=== PATIENT | male | born 1990 | race Two or more races ===

== ENCOUNTER 2019-12-25 13:04 | Emergency (ER) | payer SELFPAY ==
[~2019-12-25] VITALS: Ht 190.5 cm; Wt 70.0 kg
--- NOTE | 2019-12-25 13:41 | PHYS DOC ---
General Adult EDM: Chief Complaint: MULTIPLE COMPLAINTS HPI: HPI: Patient is a 29 year old male who presents with multiple complaints.. He states he is had a headache for the last 2 to 3 months that goes from the back of his head and radiates up around to the front of his face. He states he also has sinus pressure. He states that her the last few months he cannot see at distances of 15 to 20 feet instead is very blurry. States he is had some nausea and vomiting intermittently. He states he is been seen for it a couple times when he lived in [place] but they cannot find any thing wrong with him. He has a history of asthma. Rates pain 8 out of 10. Review of Systems: Review of Systems: Eyes: far sight blurry change in visual acuity. [] GI: Denies abdominal pain, intermittent nausea, vomiting, denies bloody stools or diarrhea. [] Neurologic: headache, denies focal weakness or sensory changes. [] Heart Score: Risk Factors: Risk Factors: DM, Current or recent (<one month) smoker, HTN, HLP, family history of CAD, obesity. Risk Scores: Score 0 - 3: 2.5% MACE over next 6 weeks - Discharge Home Score 4 - 6: 20.3% MACE over next 6 weeks - Admit for Clinical Observation Score 7 - 10: 72.7% MACE over next 6 weeks - Early Invasive Strategies Physical Exam: PE: Constitutional: Well developed, well nourished, no acute distress, non-toxic appearance. [] HENT: Normocephalic, atraumatic, bilateral external ears normal, oropharynx moist, no oral exudates, nose normal. [] Eyes: PERRLA, EOMI, conjunctiva normal, no discharge. [] Neck: Normal range of motion, no tenderness, supple, no stridor. [] Cardiovascular:Heart rate regular rhythm, no murmur [] Lungs & Thorax: Bilateral breath sounds clear to auscultation [] Abdomen: Bowel sounds normal, soft, no tenderness, no masses, no pulsatile masses. [] Skin: Warm, dry, no erythema, no rash. [] Back: No tenderness, no CVA tenderness. [] Extremities: No tenderness, no cyanosis, no clubbing, ROM intact, no edema. [] Neurologic: Alert and oriented X 3, normal motor function, normal sensory function, no focal deficits noted. [] Psychologic: Affect normal, judgement normal, mood normal. [] EKG: EKG: [] Radiology/Procedures: Radiology/Procedures: [] Impression: [facility] [address] [place] [address] IMAGING REPORT Signed PATIENT: KAREN CACERESOUNT: [id number] : 1990 LOCATION: ER AGE: 29 SEX: M EXAM STATUS: REG ER ORD. PHYSICIAN: SARAI PÉREZ APRN REASON: PAIN, BLURRED VISION PROCEDURE: CT HEAD AND MAXILLOFACIAL WO EXAM: Head and maxillofacial bone CT without contrast. HISTORY: Pain and blurred vision. TECHNIQUE: Computed tomographic images of the head and maxillofacial bones were obtained without contrast. *One or more of the following individualized dose reduction techniques were utilized for this examination: 1. Automated exposure control. 2. Adjustment of the mA and/or kV according to patient size. 3. Use of iterative reconstruction technique. COMPARISON: None. FINDINGS: There is no acute or subacute extra-axial or intraparenchymal hemorrhage. There is no mass effect or midline shift. There is no hydrocephalus. The hale-white matter differentiation pattern is intact no calvarial lesion is seen. The orbits are unremarkable. There is fluid within the inferior medial left mastoid air cells. The temporomandibular joints are intact. There is mild paranasal sinus mucosal thickening. There are small bilateral maxillary sinus mucous retention cysts. There is rightward nasal septal deviation. The ostiomeatal units are patent. There is mild endplate remodeling involving the visualized cervical spine. IMPRESSION: 1. No acute intracranial finding. Note is made that MRI is more sensitive for acute infarction. 2. No acute maxillofacial bone finding. There is mild paranasal sinus of thickening with maxillary sinus mucous retention cysts and nasal septal deviation. Electronically signed by: Cindi Flores MD (12/25/2019 2:23 PM) [facility] DICTATED and SIGNED BY: CINDI FLORES MD DATE: 12/25/19 1423 Course & Med Decision Making: Course & Med Decision Making Pertinent Labs and Imaging studies reviewed. (See chart for details) Afebrile. Alert and oriented. Vital signs within normal limits. Ambulatory with a steady gait. Speaks in full clear sentences. Lungs are clear to auscultation all lobes. Patient denies chest pain, shortness of air, cough, LOC, dizziness, numbness or tingling, focal weakness, diarrhea, fever. Patient most likely needs to go to a eye doctor and if his vision is corrected this may help stop his headaches. ALISON. NIH 0. [] Fabio Disclaimer: Fabio Disclaimer: This electronic medical record was generated, in whole or in part, using a voice recognition dictation system. NIHSS Stroke Scale NIH Stroke Scale: NIH Stroke Scale Response (Comments) Value Level of Consciousness: 0 Alert/Responsive 0 LOC Questions: 0 Answers both correctly 0 LOC Commands: 0 Performs both tasks 0 Best Gaze: 0 Normal 0 Visual: 0 No visual loss 0 Facial Palsy: 0 Normal, symmetrical 0 Motor - Left Arm 0 No drift 0 Motor - Right Arm 0 No drift 0 Motor - Left Leg 0 No drift 0 Motor: Right Leg 0 No drift 0 Limb Ataxia: 0 Absent 0 Sensory: 0 No loss 0 Best Language: 0 Normal 0 Dysathria: 0 Normal 0 Extinction and Inattention: 0 Normal 0 Total 0 Departure Departure Impression: Primary Impression: Headache Qualified Codes: R51 - Headache Additional Impression: Sinusitis Qualified Codes: J01.00 - Acute maxillary sinusitis, unspecified Disposition: HOME, SELF-CARE Condition: STABLE Referrals: NO PCP (PCP) Dyan PONCE MD, COLLEEN N MD Patient Instructions: Sinus Headache, [id number], Sinusitis Additional Instructions: Follow up with a ENT or a primary care physician. You also need glasses and need to see a eye doctor. Scripts Ibuprofen (IBUPROFEN) 600 Mg Tablet 600 MG PO PRN Q6HRS PRN for INFLAMMATION, #20 TAB Prov: SARAI PÉREZ APRN 12/25/19 Azithromycin (AZITHROMYCIN TABLET) 250 Mg Tablet 1 PKG PO UD for 5 Days, #6 TAB 0 Refills 2 the first day followed by 1 for days 2-5 Prov: SARAI PÉREZ APRN 12/25/19 Justicifation of Admission Dx: Justifications for Admission: Justification of Admission Dx: N/A SARAI PÉREZ APRN Dec 25, 2019 13:41
[2019-12-25] MEDS ORDERED: PROCHLORPERAZINE 10 MG/2 ML VIAL. IV ONE (13:45)
[2019-12-25] MEDS ORDERED: diphenhydrAMINE 50 MG/ML VIAL IVP ONE (13:45)
[2019-12-25] MEDS ORDERED: KETOROLAC 30 MG/ML VIAL. IVP ONE (13:45)
[2019-12-25 14:08] LABS: BASO # 0.1 x10^3/uL (0.0-0.2); BASO % 1 % (0-3); EOS # 0.1 x10^3/uL (0.0-0.7); EOS % 1 % (0-3); HEMOGLOBIN 15.3 g/dL (13.0-17.5); LYMPH # 1.5 x10^3/uL (1.0-4.8); LYMPH % 21 % (24-48); MEAN CORPUSCULAR HEMOGLOBIN 29 pg (25-35); MEAN CORPUSCULAR HGB CONC 34 g/dL (31-37); MEAN CORPUSCULAR VOLUME 86 fL (79-100); MONO # 0.4 x10^3/uL (0.0-1.1); MONO % 6 % (0-9); NEUT # 5.2 x10^3/uL (1.8-7.7); NEUT % 71 % (31-73); PLATELET COUNT 273 x10^3/uL (140-400); RED BLOOD COUNT 5.26 x10^6/uL (4.30-5.70); RED CELL DISTRIBUTION WIDTH 12.7 % (11.5-14.5); WHITE BLOOD COUNT 7.3 x10^3/uL (4.0-11.0)
[2019-12-25 14:16] VITALS: BP 132/78
[2019-12-25 14:17] LABS: CREATININE 1.1 mg/dL (0.7-1.3); GFR 78.1
[2019-12-25 14:23] LABS: ALBUMIN 4.3 g/dL (3.4-5.0); ALBUMIN/GLOBULIN RATIO 1.2 (1.0-1.7); TOTAL BILIRUBIN 1.3 mg/dL (0.2-1.0); TOTAL PROTEIN 7.8 g/dL (6.4-8.2)
--- NOTE | 2019-12-25 14:26 | RAD ---
EXAM: Head and maxillofacial bone CT without contrast. HISTORY: Pain and blurred vision. TECHNIQUE: Computed tomographic images of the head and maxillofacial bones were obtained without contrast. *One or more of the following individualized dose reduction techniques were utilized for this examination: 1. Automated exposure control. 2. Adjustment of the mA and/or kV according to patient size. 3. Use of iterative reconstruction technique. COMPARISON: None. FINDINGS: There is no acute or subacute extra-axial or intraparenchymal hemorrhage. There is no mass effect or midline shift. There is no hydrocephalus. The hale-white matter differentiation pattern is intact no calvarial lesion is seen. The orbits are unremarkable. There is fluid within the inferior medial left mastoid air cells. The temporomandibular joints are intact. There is mild paranasal sinus mucosal thickening. There are small bilateral maxillary sinus mucous retention cysts. There is rightward nasal septal deviation. The ostiomeatal units are patent. There is mild endplate remodeling involving the visualized cervical spine. IMPRESSION: 1. No acute intracranial finding. Note is made that MRI is more sensitive for acute infarction. 2. No acute maxillofacial bone finding. There is mild paranasal sinus of thickening with maxillary sinus mucous retention cysts and nasal septal deviation. Electronically signed by: Cindi Carmen MD (12/25/2019 2:23 PM) [facility]
[2019-12-25] MEDS ORDERED: AZIT250T6 PO (14:32)
[2019-12-25] MEDS ORDERED: IBUP-1007 PO (14:32)
== END 2019-12-25 14:44 | disposition home or self-care (01) ==
LOC: ER 13:04
DX: J01.00 Acute maxillary sinusitis, unspecified (principal); R51 Headache; R11.2 Nausea with vomiting, unspecified
CPT/HCPCS: 36415; 70450; 70486; 80053; 83690; 85025; 96374; 96375; 99285; J0780; J1200; J1885

== ENCOUNTER 2020-02-22 13:08 | Emergency (ER) | payer SELFPAY ==
[~2020-02-22] VITALS: Ht 190.5 cm; Wt 68.2 kg
[~2020-02-22 13:08] MED LIST: AZIT250T6 PO; IBUP-1007 PO
[2020-02-22] MEDS ORDERED: METOCLOPRAMIDE HCL 10 MG/2 ML VIAL. IV ONE (13:45)
[2020-02-22] MEDS ORDERED: diphenhydrAMINE 50 MG/ML VIAL IVP ONE (13:45)
[2020-02-22] MEDS ORDERED: KETOROLAC 30 MG/ML VIAL. IV ONE (13:45)
[2020-02-22] MEDS ORDERED: IV NORMAL SALINE 1000ML BAG 1,000 ML IV ONE (13:45)
--- NOTE | 2020-02-22 14:25 | PHYS DOC ---
Past Medical History Past Medical History: Asthma Past Surgical History: No Surgical History Smoking Status: Former Smoker Alcohol Use: Sober General Adult EDM: Chief Complaint: NAUSEA/VOMITING/DIARRHA HPI: HPI: Patient is a 29-year-old male who presents with a 3-month history of headache. He states it is behind his left eye on the left side of his body. He states it comes and goes and at times is serious. He has had a headache for the last several hours he describes both photophobia and phonophobia. He has had nausea and vomiting. He states that he is also considering suicide secondary to the relentless nature of the headaches. He states he doubts he would do it because he has children at home. He denies any fever or neck pain. He denies any lateralizing neurologic weakness. [] Review of Systems: Review of Systems: Constitutional: Denies fever or chills. [] Eyes: Denies change in visual acuity. [] HENT: Denies nasal congestion or sore throat. [] Respiratory: Denies cough or shortness of breath. [] Cardiovascular: Denies chest pain or edema. [] GI: Denies abdominal pain, nausea, vomiting, bloody stools or diarrhea. [] : Denies dysuria. [] Musculoskeletal: Denies back pain or joint pain. [] Integument: Denies rash. [] Neurologic: Per HPI. [] Endocrine: Denies polyuria or polydipsia. [] Lymphatic: Denies swollen glands. [] Psychiatric: Reports depression reports anxiety reports suicidal thoughts] Heart Score: Risk Factors: Risk Factors: DM, Current or recent (<one month) smoker, HTN, HLP, family history of CAD, obesity. Risk Scores: Score 0 - 3: 2.5% MACE over next 6 weeks - Discharge Home Score 4 - 6: 20.3% MACE over next 6 weeks - Admit for Clinical Observation Score 7 - 10: 72.7% MACE over next 6 weeks - Early Invasive Strategies Current Medications: Current Medications Medications (Trade) Dose Ordered Sig/Kassandra Start Time Stop Time Status Last Admin Dose Admin Diphenhydramine HCl (Benadryl) 25 mg 1X ONCE 02/22/20 13:45 02/22/20 13:46 DC Ketorolac Tromethamine (Toradol 30mg Vial) 30 mg 1X ONCE 02/22/20 13:45 02/22/20 13:46 DC Metoclopramide HCl (Reglan Vial) 10 mg 1X ONCE 02/22/20 13:45 02/22/20 13:46 DC Sodium Chloride 1,000 ml @ 1,000 mls/hr 1X ONCE 02/22/20 13:45 02/22/20 14:44 Allergies: Allergies: Allergies Coded Allergies Type Severity Reaction Last Updated Verified Penicillins Allergy Unknown 12/25/19 Yes Physical Exam: PE: Constitutional: Well developed, well nourished, no acute distress, non-toxic appearance. [] HENT: Normocephalic, atraumatic, bilateral external ears normal, oropharynx moist, no oral exudates, nose normal. [] Eyes: PERRLA, EOMI, conjunctiva normal, no discharge. [] Neck: Normal range of motion, no tenderness, supple, no stridor. [] Cardiovascular:Heart rate regular rhythm, no murmur [] Lungs & Thorax: Bilateral breath sounds clear to auscultation [] Abdomen: Bowel sounds normal, soft, no tenderness, no masses, no pulsatile masses. [] Skin: Warm, dry, no erythema, no rash. [] Back: No tenderness, no CVA tenderness. [] Extremities: No tenderness, no cyanosis, no clubbing, ROM intact, no edema. [] Neurologic: Alert and oriented X 3, normal motor function, normal sensory function, no focal deficits noted. [] Psychologic: Anxious. [] Current Patient Data: Vital Signs: Vital Signs Date Time Temp Pulse Resp B/P (MAP) Pulse Ox O2 Delivery O2 Flow Rate FiO2 02/22/20 13:29 99.2 83 16 147/81 (103) 99 Room Air 99.2 EKG: EKG: [] Radiology/Procedures: Radiology/Procedures: [] Course & Med Decision Making: Course & Med Decision Making Pertinent Labs and Imaging studies reviewed. (See chart for details) [ED course: Evaluation reveals a 29-year-old male with what sounds like chronic migraines. He has had also uncontrolled anxiety and depression. I had the psychiatric assessment team evaluate him today and they determined that he was not suicidal or homicidal. I will send him home with some medicine for his anxiety as well as headaches.] Fabio Disclaimer: Fabio Disclaimer: This electronic medical record was generated, in whole or in part, using a voice recognition dictation system. Departure Departure Impression: Primary Impression: Migraine headache Qualified Codes: G43.901 - Migraine, unspecified, not intractable, with status migrainosus Additional Impression: Panic disorder Disposition: 01 HOME, SELF-CARE Condition: IMPROVED Referrals: NO PCP (PCP) Patient Instructions: Anxiety and Panic Attacks, Migraine Headache Additional Instructions: Return to the emergency department with any new or concerning symptoms Scripts Paroxetine Hcl (PAXIL) 20 Mg Tablet 1 TAB PO DAILY for 30 Days, #30 TAB 0 Refills Prov: CAROL ROGERS DO 02/22/20 Metoclopramide Hcl (REGLAN) 10 Mg Tablet 1 TAB PO Q8HRS PRN for migraine, #30 TAB Take 25 mg of Benadryl with each dose Prov: CAROL ROGERS DO 02/22/20 Alprazolam (ALPRAZOLAM) 0.25 Mg Tablet 0.25 MG PO PRN Q6HRS PRN for ANXIETY / AGITATION, #20 TAB 0 Refills Prov: CAROL ROGERS DO 02/22/20 Justicifation of Admission Dx: Justifications for Admission: Justification of Admission Dx: CAROL Painting DO Feb 22, 2020 14:25
--- NOTE | 2020-02-22 14:32 | RAD ---
EXAM: CT HEAD WITHOUT CONTRAST. HISTORY: Headache. TECHNIQUE: Computed tomography of the head was performed without intravenous contrast. One or more of the following individualized dose reduction techniques were utilized for this examination: 1. Automated exposure control. 2. Adjustment of the mA and/or kV according to patient size. 3. Use of iterative reconstruction technique. COMPARISON: 12/25/2019. FINDINGS: There is no intracranial hemorrhage. Brito-white differentiation is preserved. The ventricles are normal in size and position. There is moderate mucosal thickening throughout the ethmoid air cells. There is a small amount of fluid in the left aspect of the frontal sinus. The orbits are unremarkable. The temporal bones are unremarkable. The calvarium reveals no suspicious lesions. IMPRESSION: 1. No acute intracranial findings. 2. Acute on chronic ethmoid and frontal sinus disease. Electronically signed by: Sidney Arana MD (02/22/2020 2:29 PM) [id number]
[2020-02-22 14:36] LABS: BASO % 1 % (0-3); EOS # 0.1 x10^3/uL (0.0-0.7); EOS % 2 % (0-3); HEMATOCRIT 46.2 % (39.0-53.0); HEMOGLOBIN 15.6 g/dL (13.0-17.5); LYMPH # 1.4 x10^3/uL (1.0-4.8); LYMPH % 23 % (24-48); MEAN CORPUSCULAR HEMOGLOBIN 29 pg (25-35); MEAN CORPUSCULAR HGB CONC 34 g/dL (31-37); MEAN CORPUSCULAR VOLUME 86 fL (79-100); MONO # 0.4 x10^3/uL (0.0-1.1); MONO % 7 % (0-9); NEUT # 4.1 x10^3/uL (1.8-7.7); NEUT % 67 % (31-73); PLATELET COUNT 314 x10^3/uL (140-400); RED CELL DISTRIBUTION WIDTH 12.6 % (11.5-14.5); WHITE BLOOD COUNT 6.2 x10^3/uL (4.0-11.0)
[2020-02-22 14:56] LABS: GFR 87.2; POTASSIUM 4.5 mmol/L (3.5-5.1)
[2020-02-22 15:01] LABS: ACETAMIN < 2 mcg/ml (10-30)
[2020-02-22 15:02] LABS: ALBUMIN 4.4 g/dL (3.4-5.0); ALBUMIN/GLOBULIN RATIO 1.3 (1.0-1.7); ETHANOL < 10 mg/dL (0-10); SALIC < 2.8 mg/dL (2.8-20.0); TOTAL BILIRUBIN 1.4 mg/dL (0.2-1.0); TOTAL PROTEIN 7.7 g/dL (6.4-8.2)
[2020-02-22] MEDS ORDERED: ALPR0.254 PO (15:14)
[2020-02-22] MEDS ORDERED: PARO20TA99 PO (15:14)
[2020-02-22] MEDS ORDERED: METO10TA81 PO (15:14)
[2020-02-22 16:10] VITALS: BP 126/68
[2020-02-22 16:39] LABS: BILIRUBIN,URINE NEGATIVE (NEG); CLARITY,URINE CLEAR; COLOR,URINE YELLOW; NITRITE,URINE NEGATIVE (NEG); PH,URINE 6.5 (<5.0-8.0); PROTEIN,URINE NEGATIVE (NEG-TRACE); UROBILINOGEN,URINE 0.2 mg/dL (0.2 mg/dL)
[2020-02-22 16:44] LABS: BACTERIA,URINE 0 /HPF (0-FEW); RBC,URINE 0 /HPF (0-2); WBC,URINE 0 /HPF (0-4)
[2020-02-22 16:46] LABS: BARBITURATES NEG (NEG); BENZODIAZEPINES NEG (NEG); CANNABINOIDS NEG (NEG); COCAINE NEG (NEG); METHADONE NEG (NEG); OPIATES NEG (NEG); PHENCYCLIDINE NEG (NEG)
[2020-02-22 17:05] LABS: AMPHETAMINE/METHAMPHETAMINE NEG (NEG)
== END 2020-02-22 16:20 | disposition home or self-care (01) ==
LOC: ER 13:08
DX: G43.901 Migraine, unspecified, not intractable, with status migrainosus (principal); F41.0 Panic disorder [episodic paroxysmal anxiety]; J45.909 Unspecified asthma, uncomplicated; Z87.891 Personal history of nicotine dependence
CPT/HCPCS: 36415; 70450; 80053; 80307; 80329; 81001; 85025; 96361; 96374; 96375; 99284; G0480; J1200; J1885; J2765; J7030

== ENCOUNTER 2021-04-18 11:08 | Emergency (ER) | payer OTHER ==
[~2021-04-18] VITALS: Ht 190.5 cm; Wt 75.0 kg
[~2021-04-18 11:08] MED LIST changes: +ALPR0.254 PO; +METO10TA81 PO; +PARO20TA99 PO
[2021-04-18 11:24] VITALS: BP 161/98
--- NOTE | 2021-04-18 12:31 | PHYS DOC ---
Past Medical History Past Medical History: Asthma Past Surgical History: No Surgical History Smoking Status: Never Smoker Alcohol Use: None General Adult EDM: Chief Complaint: Palpitations HPI: HPI: Patient is a 30 year old male who present to ER for evaluation of heart palpitation. Patient said for the last few weeks, after he ate breakfast he started having heart palpitation. Patient denies any chest pain or any trouble breathing. Patient said 2 months ago he had COVID-19 infection. Patient denies any cough or fever. Patient had a pulse ox monitor at home and he was walking and had the pulse ox monitor on and he noted his heart rate went up to 140 beats per minutes at one time. Patient is worried about it so he came in for evaluation. Patient had a history of anxiety. Review of Systems: Review of Systems: Constitutional: Denies fever or chills. [] Eyes: Denies change in visual acuity. [] HENT: Denies nasal congestion or sore throat. [] Respiratory: Denies cough or shortness of breath. [] Cardiovascular: Denies chest pain or edema. Positive for heart palpitation GI: Denies abdominal pain, nausea, vomiting, bloody stools or diarrhea. [] : Denies dysuria. [] Musculoskeletal: Denies back pain or joint pain. [] Integument: Denies rash. [] Neurologic: Denies headache, focal weakness or sensory changes. [] Endocrine: Denies polyuria or polydipsia. [] Lymphatic: Denies swollen glands. [] Psychiatric: Denies depression or anxiety. [] Heart Score: C/O Chest Pain: N/A Risk Factors: Risk Factors: DM, Current or recent (<one month) smoker, HTN, HLP, family history of CAD, obesity. Risk Scores: Score 0 - 3: 2.5% MACE over next 6 weeks - Discharge Home Score 4 - 6: 20.3% MACE over next 6 weeks - Admit for Clinical Observation Score 7 - 10: 72.7% MACE over next 6 weeks - Early Invasive Strategies Allergies: Allergies: Allergies Coded Allergies Type Severity Reaction Last Updated Verified Penicillins Allergy Unknown 12/25/19 Yes Physical Exam: PE: Constitutional: Well developed, well nourished, no acute distress, non-toxic appearance. [] HENT: Normocephalic, atraumatic, bilateral external ears normal, oropharynx moist, no oral exudates, nose normal. [] Eyes: PERRLA, EOMI, conjunctiva normal, no discharge. [] Neck: Normal range of motion, no tenderness, supple, no stridor. [] Cardiovascular:Heart rate regular rhythm, no murmur [] Lungs & Thorax: Bilateral breath sounds clear to auscultation [] Abdomen: Bowel sounds normal, soft, no tenderness, no masses, no pulsatile masses. [] Skin: Warm, dry, no erythema, no rash. [] Back: No tenderness, no CVA tenderness. [] Extremities: No tenderness, no cyanosis, no clubbing, ROM intact, no edema. [] Neurologic: Alert and oriented X 3, normal motor function, normal sensory function, no focal deficits noted. [] Psychologic: Affect normal, judgement normal, mood normal. [] Current Patient Data: Vital Signs: Vital Signs Date Time Temp Pulse Resp B/P (MAP) Pulse Ox O2 Delivery O2 Flow Rate FiO2 04/18/21 11:24 98.5 105 16 161/98 (119) 99 98.5 EKG: EKG: [] Radiology/Procedures: Radiology/Procedures: [] Course & Med Decision Making: Course & Med Decision Making Pertinent Labs and Imaging studies reviewed. (See chart for details) Patient is a 30-year-old male who present to ER due to heart palpitation. His EKG was done in ER showed heart rate around 103 bpm sinus tachycardia, patient was observed on the heart monitor in ER here for 45 minutes, he was in sinus rhythm. Patient was in no acute distress. His vital signs were stable. There is no further work-up needed at this time. Dragon Disclaimer: Dragon Disclaimer: This electronic medical record was generated, in whole or in part, using a voice recognition dictation system. Departure Departure Impression: Primary Impression: Anxiety Disposition: 01 HOME / SELF CARE / HOMELESS Condition: STABLE Referrals: NO PCP (PCP) Patient Instructions: Anxiety and Panic Attacks CL SOLORZANO DO Apr 18, 2021 12:31
== END 2021-04-18 12:40 | disposition home or self-care (01) ==
LOC: ER 11:08
DX: F41.9 Anxiety disorder, unspecified (principal); R00.2 Palpitations; R00.0 Tachycardia, unspecified; J45.909 Unspecified asthma, uncomplicated; Z88.0 Allergy status to penicillin
CPT/HCPCS: 99283